=== PATIENT | male | born 1945 | race African-American/Black ===

== ENCOUNTER 2022-01-21 22:45 | Inpatient (IN) | payer MEDICARE, BC ==
[~2022-01-21] VITALS: Ht 172.7 cm; Wt 64.4 kg
[2022-01-21 23:00] VITALS: BP 131/63
[2022-01-22] MEDS ORDERED: BISACODYL 10MG SUPP PR PRN (00:45)
[2022-01-22] MEDS ORDERED: MAGNESIUM HYDROXIDE 400MG/5ML 30ML UDC PO PRN (00:45)
[2022-01-22] MEDS ORDERED: ONDANSETRON HCL 4MG TABLET PO PRN (00:45)
[2022-01-22] MEDS ORDERED: NON FORMULARY PATIENT HOME MED XX SCH ×6 (00:45→09:00)
[2022-01-22] MEDS ORDERED: BISACODYL 5MG TABLET PO PRN (00:45)
[2022-01-22] MEDS ORDERED: ONDANSETRON HCL 4MG/2ML INJ IV PRN (01:15)
[2022-01-22] MEDS ORDERED: HYDRALAZINE 20MG/ML VIAL IV PRN (01:15)
[2022-01-22] MEDS ORDERED: GLUCAGON,HUMAN RECOMBINANT 1MG/VIAL IM PRN (01:15)
[2022-01-22] MEDS ORDERED: HYDRALAZINE 10 MG in SODIUM CHLORIDE 0.9% 49.5 ML IV PRN (01:30)
[2022-01-22] MEDS: BLOOD SUGAR DIAGNOSTIC STRIP TEST SCH (05:56)
[2022-01-22] MEDS: INSULIN LISPRO 100 UNITS/ML SUBCUT SCH (05:56)
[2022-01-22 06:18] LABS: CHLORIDE 100 mEq/L (98-107)
[2022-01-22 06:32] LABS: BASOPHILS % 0.4 % (0.0-2.0); EOSINOPHILS % 0.7 % (0.0-5.0); HEMATOCRIT. 30.7 % (42.0-52.0); HEMOGLOBIN. 10.6 g/dL (14.0-18.0); LYMPHOCYTES % 14.7 % (20.0-50.0); MEAN CORPUSCULAR HEMOGLOBIN 33.6 pg (28.0-32.0); MEAN CORPUSCULAR VOLUME 97.2 fL (80.0-94.0); MEAN PLATELET VOLUME 8.9 fl (7.4-10.4); MONOCYTES % 9.8 % (2.0-8.0); NEUTROPHILS % 74.4 % (40.0-76.0); PLATELET 162 x1000/uL (130-400); RED BLOOD CELL COUNT 3.16 mill/uL (4.7-6.1); RED CELL DISTRIBUTION WIDTH 14.2 % (11.6-14.6)
[2022-01-22 08:00] VITALS: BP 132/65
[2022-01-22] MEDS: IPRATROPIUM/ALBUTEROL 0.5-3(2.5)MG/3ML NEB HHN SCH ×3 (08:16→20:15)
[2022-01-22] MEDS ORDERED: FLUTICASONE PROPIONATE 50MCG/SPRAY BOTTLE BOTHNSTRLS SCH (09:00)
[2022-01-22] MEDS: TRAMADOL 50MG TABLET PO SCH ×2 (09:00→21:00)
[2022-01-22] MEDS: ZINC OXIDE 16% PASTE 28GM TOP SCH ×2 (09:00→21:22)
[2022-01-22] MEDS: POLYETHYLENE GLYCOL 3350 (17GM) 1 DOSE PACK PO SCH ×2 (10:24→21:21)
[2022-01-22] MEDS: FAMOTIDINE 20MG TABLET PO SCH (10:25)
[2022-01-22] MEDS: ASCORBIC ACID 500 MG TABLET PO SCH (10:25)
[2022-01-22] MEDS: SENNOSIDES 8.6MG TABLET PO SCH ×2 (10:25→21:21)
[2022-01-22] MEDS: AMLODIPINE 5MG TABLET PO SCH (10:25)
[2022-01-22] MEDS: CITALOPRAM HYDROBROMIDE 10MG TABLET PO SCH (10:25)
[2022-01-22] MEDS: METHYLPREDNISOLONE SOD SUCC 40 MG/ML VIAL IV SCH (10:26)
[2022-01-22] MEDS: LACTULOSE 20G/30ML UDC PO SCH ×4 (10:26→21:19)
[2022-01-22] MEDS ORDERED: NA PHOS,M-B/NA PHOS,DI-BA ENEMA 118ML PR SCH (13:30)
[2022-01-22] MEDS: ENOXAPARIN 40MG/0.4ML SYR SUBCUT SCH (13:33)
[2022-01-22] MEDS: DOCUSATE SODIUM SUGAR FREE 100MG/10ML UDC PO SCH ×2 (13:34→21:19)
[2022-01-22] MEDS: LIPASE/PROTEASE/AMYLASE 4,200/14,200/24,600 UNITS CAP DR PO SCH (18:12)
[2022-01-22] MEDS ORDERED: NALOXONE HCL 0.4MG/ML VIAL IV PRN (19:15)
[2022-01-22 20:09] VITALS: BP 121/65
[2022-01-22] MEDS ORDERED: NON FORMULARY PATIENT HOME MED PO SCH (21:00)
[2022-01-22] MEDS ORDERED: TERAZOSIN HCL 1MG CAPSULE PO SCH (21:00)
[2022-01-22] MEDS: FLUTICASONE PROPIONATE 50MCG/SPRAY BOTTLE BOTHNSTRLS SCH (21:19)
[2022-01-22] MEDS: TRAZODONE HCL 50MG TABLET PO SCH (21:20)
[2022-01-22] MEDS: TERAZOSIN HCL 5MG CAPSULE PO SCH (21:21)
[2022-01-22] MEDS: ATORVASTATIN CALCIUM 20MG TABLET PO SCH (21:21)
[2022-01-22] MEDS: MELATONIN 3MG TABLET PO SCH (21:21)
[2022-01-23] MEDS: BUDESONIDE 0.5MG/2ML NEB HHN SCH ×3 (01:08→20:29)
[2022-01-23] MEDS: IPRATROPIUM/ALBUTEROL 0.5-3(2.5)MG/3ML NEB HHN SCH ×6 (01:08→20:29)
[2022-01-23] MEDS ORDERED: METO10TA3 PO (02:34)
[2022-01-23] MEDS ORDERED: ASPI-1406 PO (02:34)
[2022-01-23] MEDS ORDERED: FAMO20TA8 PO (02:34)
[2022-01-23] MEDS ORDERED: DEXL60CA3 PO (02:34)
[2022-01-23] MEDS ORDERED: URSO300C4 PO (02:34)
[2022-01-23] MEDS ORDERED: AMLO2.5T45 PO (02:34)
[2022-01-23] MEDS ORDERED: ROSU5TAB PO (02:34)
[2022-01-23] MEDS ORDERED: TERA2CAP4 PO (02:34)
[2022-01-23] MEDS ORDERED: MECL-217 PO (02:34)
[2022-01-23] MEDS ORDERED: TRAZ-251 PO (02:34)
[2022-01-23] MEDS ORDERED: TADA5TAB PO (02:34)
[2022-01-23] MEDS ORDERED: ESCI-7 PO (02:34)
[2022-01-23] MEDS ORDERED: PRUC2TAB PO (02:34)
[2022-01-23] MEDS: BLOOD SUGAR DIAGNOSTIC STRIP TEST SCH (05:53)
[2022-01-23] MEDS: INSULIN LISPRO 100 UNITS/ML SUBCUT SCH (05:53)
[2022-01-23 08:00] VITALS: BP 141/73
[2022-01-23] MEDS: TRAMADOL 50MG TABLET PO SCH ×2 (09:00→21:00)
[2022-01-23] MEDS ORDERED: NA PHOS,M-B/NA PHOS,DI-BA ENEMA 118ML PR PRN (09:00)
[2022-01-23] MEDS: DOCUSATE SODIUM SUGAR FREE 100MG/10ML UDC PO SCH ×2 (09:17→21:36)
[2022-01-23] MEDS: ASPIRIN 81MG TABLET PO SCH (09:18)
[2022-01-23] MEDS: METHYLPREDNISOLONE SOD SUCC 40 MG/ML VIAL IV SCH (09:18)
[2022-01-23] MEDS: FLUTICASONE PROPIONATE 50MCG/SPRAY BOTTLE BOTHNSTRLS SCH (09:18)
[2022-01-23] MEDS: ENOXAPARIN 40MG/0.4ML SYR SUBCUT SCH (09:19)
[2022-01-23] MEDS: CITALOPRAM HYDROBROMIDE 10MG TABLET PO SCH (09:19)
[2022-01-23] MEDS: SENNOSIDES 8.6MG TABLET PO SCH ×2 (09:19→21:37)
[2022-01-23] MEDS: LIPASE/PROTEASE/AMYLASE 4,200/14,200/24,600 UNITS CAP DR PO SCH ×3 (09:19→17:25)
[2022-01-23] MEDS: ASCORBIC ACID 500 MG TABLET PO SCH (09:20)
[2022-01-23] MEDS: POLYETHYLENE GLYCOL 3350 (17GM) 1 DOSE PACK PO SCH (09:20)
[2022-01-23] MEDS: FAMOTIDINE 20MG TABLET PO SCH (09:20)
[2022-01-23] MEDS: AMLODIPINE 5MG TABLET PO SCH (09:20)
[2022-01-23] MEDS: ZINC OXIDE 16% PASTE 28GM TOP SCH ×2 (09:21→21:38)
[2022-01-23] MEDS ORDERED: NA PHOS,M-B/NA PHOS,DI-BA ENEMA 118ML PR NR (10:30)
[2022-01-23] MEDS: LACTULOSE 20G/30ML UDC PO SCH ×3 (10:50→17:25)
[2022-01-23 20:00] VITALS: BP 126/65
[2022-01-23] MEDS: TRAZODONE HCL 50MG TABLET PO SCH (21:36)
[2022-01-23] MEDS: ATORVASTATIN CALCIUM 20MG TABLET PO SCH (21:37)
[2022-01-23] MEDS: TERAZOSIN HCL 5MG CAPSULE PO SCH (21:37)
[2022-01-23] MEDS: MELATONIN 3MG TABLET PO SCH (21:37)
[2022-01-24] MEDS: IPRATROPIUM/ALBUTEROL 0.5-3(2.5)MG/3ML NEB HHN SCH ×6 (01:23→20:46)
[2022-01-24] MEDS: BLOOD SUGAR DIAGNOSTIC STRIP TEST SCH (06:05)
[2022-01-24] MEDS: INSULIN LISPRO 100 UNITS/ML SUBCUT SCH (06:05)
[2022-01-24] MEDS: BUDESONIDE 0.5MG/2ML NEB HHN SCH ×2 (07:30→20:45)
[2022-01-24 08:00] VITALS: BP 133/64
[2022-01-24] MEDS: ENOXAPARIN 40MG/0.4ML SYR SUBCUT SCH (08:37)
[2022-01-24] MEDS: CITALOPRAM HYDROBROMIDE 10MG TABLET PO SCH (08:38)
[2022-01-24] MEDS: ASPIRIN 81MG TABLET PO SCH (08:38)
[2022-01-24] MEDS: FLUTICASONE PROPIONATE 50MCG/SPRAY BOTTLE BOTHNSTRLS SCH (08:39)
[2022-01-24] MEDS: FAMOTIDINE 20MG TABLET PO SCH (08:39)
[2022-01-24] MEDS: METHYLPREDNISOLONE SOD SUCC 40 MG/ML VIAL IV SCH (08:39)
[2022-01-24] MEDS: LIPASE/PROTEASE/AMYLASE 4,200/14,200/24,600 UNITS CAP DR PO SCH ×3 (08:39→16:33)
[2022-01-24] MEDS: SENNOSIDES 8.6MG TABLET PO SCH ×2 (08:39→20:25)
[2022-01-24] MEDS: DOCUSATE SODIUM SUGAR FREE 100MG/10ML UDC PO SCH ×2 (08:39→20:25)
[2022-01-24] MEDS: ASCORBIC ACID 500 MG TABLET PO SCH (08:39)
[2022-01-24] MEDS: ZINC OXIDE 16% PASTE 28GM TOP SCH ×2 (08:39→20:25)
[2022-01-24] MEDS: TRAMADOL 50MG TABLET PO SCH ×3 (08:40→21:25)
[2022-01-24] MEDS: POLYETHYLENE GLYCOL 3350 (17GM) 1 DOSE PACK PO SCH (08:40)
[2022-01-24 20:00] VITALS: BP 109/60
[2022-01-24] MEDS: ATORVASTATIN CALCIUM 20MG TABLET PO SCH (20:25)
[2022-01-24] MEDS: TRAZODONE HCL 50MG TABLET PO SCH (20:25)
[2022-01-24] MEDS: TERAZOSIN HCL 5MG CAPSULE PO SCH (20:25)
[2022-01-24] MEDS: MELATONIN 3MG TABLET PO SCH (20:26)
[2022-01-25] MEDS: IPRATROPIUM/ALBUTEROL 0.5-3(2.5)MG/3ML NEB HHN SCH ×6 (00:06→23:55)
[2022-01-25 08:00] VITALS: BP 117/65
[2022-01-25] MEDS: INSULIN LISPRO 100 UNITS/ML SUBCUT SCH (09:00)
[2022-01-25] MEDS: ZINC OXIDE 16% PASTE 28GM TOP SCH ×2 (09:00→21:00)
[2022-01-25] MEDS: BISACODYL 10MG SUPP PR SCH (09:00)
[2022-01-25] MEDS: FLUTICASONE PROPIONATE 50MCG/SPRAY BOTTLE BOTHNSTRLS SCH (09:19)
[2022-01-25] MEDS: METHYLPREDNISOLONE SOD SUCC 40 MG/ML VIAL IV SCH (09:19)
[2022-01-25] MEDS: ENOXAPARIN 40MG/0.4ML SYR SUBCUT SCH (09:19)
[2022-01-25] MEDS: FAMOTIDINE 20MG TABLET PO SCH (09:20)
[2022-01-25] MEDS: ASCORBIC ACID 500 MG TABLET PO SCH (09:20)
[2022-01-25] MEDS: CITALOPRAM HYDROBROMIDE 10MG TABLET PO SCH (09:20)
[2022-01-25] MEDS: DOCUSATE SODIUM SUGAR FREE 100MG/10ML UDC PO SCH ×2 (09:20→21:18)
[2022-01-25] MEDS: SENNOSIDES 8.6MG TABLET PO SCH ×2 (09:20→21:18)
[2022-01-25] MEDS: ASPIRIN 81MG TABLET PO SCH (09:20)
[2022-01-25] MEDS: POLYETHYLENE GLYCOL 3350 (17GM) 1 DOSE PACK PO SCH (09:21)
[2022-01-25] MEDS: BLOOD SUGAR DIAGNOSTIC STRIP TEST SCH (09:40)
[2022-01-25] MEDS: LIPASE/PROTEASE/AMYLASE 4,200/14,200/24,600 UNITS CAP DR PO SCH ×3 (10:11→16:41)
[2022-01-25 10:35] LABS: BASOPHILS % 0.3 % (0.0-2.0); EOSINOPHILS % 0.4 % (0.0-5.0); HEMATOCRIT. 29.2 % (42.0-52.0); HEMOGLOBIN. 9.8 g/dL (14.0-18.0); LYMPHOCYTES % 14.3 % (20.0-50.0); MEAN CORPUSCULAR HEMOGLOBIN 32.9 pg (28.0-32.0); MEAN PLATELET VOLUME 8.9 fl (7.4-10.4); MONOCYTES % 9.2 % (2.0-8.0); NEUTROPHILS % 75.8 % (40.0-76.0); PLATELET 174 x1000/uL (130-400); RED BLOOD CELL COUNT 2.98 mill/uL (4.7-6.1); RED CELL DISTRIBUTION WIDTH 14.4 % (11.6-14.6)
[2022-01-25 10:45] LABS: CHLORIDE 101 mEq/L (98-107)
[2022-01-25] MEDS: BUDESONIDE 0.5MG/2ML NEB HHN SCH ×2 (12:49→21:26)
[2022-01-25 19:58] VITALS: BP 126/64
[2022-01-25] MEDS: MELATONIN 3MG TABLET PO SCH (21:18)
[2022-01-25] MEDS: ATORVASTATIN CALCIUM 20MG TABLET PO SCH (21:18)
[2022-01-25] MEDS: TRAZODONE HCL 50MG TABLET PO SCH (21:19)
[2022-01-25] MEDS: TERAZOSIN HCL 5MG CAPSULE PO SCH (21:19)
[2022-01-26] MEDS: IPRATROPIUM/ALBUTEROL 0.5-3(2.5)MG/3ML NEB HHN SCH ×5 (04:38→19:36)
[2022-01-26 06:30] LABS: CHLORIDE 102 mEq/L (98-107)
[2022-01-26 06:47] LABS: BASOPHILS % 0.1 % (0.0-2.0); EOSINOPHILS % 0.2 % (0.0-5.0); HEMATOCRIT. 28.4 % (42.0-52.0); HEMOGLOBIN. 9.6 g/dL (14.0-18.0); MEAN CORPUSCULAR HEMOGLOBIN 32.9 pg (28.0-32.0); MEAN CORPUSCULAR VOLUME 96.9 fL (80.0-94.0); MEAN PLATELET VOLUME 8.5 fl (7.4-10.4); MONOCYTES % 7.8 % (2.0-8.0); NEUTROPHILS % 78.9 % (40.0-76.0); PLATELET 175 x1000/uL (130-400); RED BLOOD CELL COUNT 2.94 mill/uL (4.7-6.1); RED CELL DISTRIBUTION WIDTH 14.4 % (11.6-14.6)
[2022-01-26 07:01] LABS: FOLIC ACID (FOLATE) SERUM 17.7 ng/mL (>5.38)
[2022-01-26 08:00] VITALS: BP 99/49
[2022-01-26] MEDS: TRAMADOL 50MG TABLET PO SCH (09:00)
[2022-01-26] MEDS: BLOOD SUGAR DIAGNOSTIC STRIP TEST SCH (09:00)
[2022-01-26] MEDS: INSULIN LISPRO 100 UNITS/ML SUBCUT SCH (09:00)
[2022-01-26] MEDS: DOCUSATE SODIUM SUGAR FREE 100MG/10ML UDC PO SCH ×2 (11:30→21:35)
[2022-01-26] MEDS: ASPIRIN 81MG TABLET PO SCH (11:30)
[2022-01-26] MEDS: SENNOSIDES 8.6MG TABLET PO SCH ×2 (11:31→21:36)
[2022-01-26] MEDS: FLUTICASONE PROPIONATE 50MCG/SPRAY BOTTLE BOTHNSTRLS SCH (11:31)
[2022-01-26] MEDS: BISACODYL 10MG SUPP PR SCH (11:31)
[2022-01-26] MEDS: FAMOTIDINE 20MG TABLET PO SCH (11:31)
[2022-01-26] MEDS: ASCORBIC ACID 500 MG TABLET PO SCH (11:31)
[2022-01-26] MEDS: LIPASE/PROTEASE/AMYLASE 4,200/14,200/24,600 UNITS CAP DR PO SCH ×3 (11:31→17:30)
[2022-01-26] MEDS: CITALOPRAM HYDROBROMIDE 10MG TABLET PO SCH (11:31)
[2022-01-26] MEDS: POLYETHYLENE GLYCOL 3350 (17GM) 1 DOSE PACK PO SCH (11:32)
[2022-01-26] MEDS: METHYLPREDNISOLONE SOD SUCC 40 MG/ML VIAL IV SCH (11:32)
[2022-01-26] MEDS: ENOXAPARIN 40MG/0.4ML SYR SUBCUT SCH (11:32)
[2022-01-26] MEDS: ZINC OXIDE 16% PASTE 28GM TOP SCH (11:33)
[2022-01-26] MEDS ORDERED: TRAMADOL 50MG TABLET PO PRN (14:00)
[2022-01-26] MEDS ORDERED: SORBITOL 70% SOLN 30ML PO NR (15:00)
[2022-01-26] MEDS ORDERED: NA PHOS,M-B/NA PHOS,DI-BA ENEMA 118ML PR NR (15:00)
[2022-01-26] MEDS: BUDESONIDE 0.5MG/2ML NEB HHN SCH (19:36)
[2022-01-26 20:06] VITALS: BP 124/69
[2022-01-26] MEDS: TRAZODONE HCL 50MG TABLET PO SCH (21:36)
[2022-01-26] MEDS: TERAZOSIN HCL 5MG CAPSULE PO SCH (21:36)
[2022-01-26] MEDS: MELATONIN 3MG TABLET PO SCH (21:36)
[2022-01-26] MEDS: ATORVASTATIN CALCIUM 20MG TABLET PO SCH (21:36)
[2022-01-27] MEDS: IPRATROPIUM/ALBUTEROL 0.5-3(2.5)MG/3ML NEB HHN SCH ×6 (02:49→21:37)
[2022-01-27 08:00] VITALS: BP 127/63
[2022-01-27] MEDS: INSULIN LISPRO 100 UNITS/ML SUBCUT SCH (09:00)
[2022-01-27] MEDS: POLYETHYLENE GLYCOL 3350 (17GM) 1 DOSE PACK PO SCH (09:00)
[2022-01-27] MEDS: BLOOD SUGAR DIAGNOSTIC STRIP TEST SCH (09:00)
[2022-01-27] MEDS ORDERED: NA PHOS,M-B/NA PHOS,DI-BA ENEMA 118ML PR PRN (09:00)
[2022-01-27] MEDS: DOCUSATE SODIUM SUGAR FREE 100MG/10ML UDC PO SCH ×2 (09:16→21:23)
[2022-01-27] MEDS: ASPIRIN 81MG TABLET PO SCH (09:17)
[2022-01-27] MEDS: FAMOTIDINE 20MG TABLET PO SCH (09:17)
[2022-01-27] MEDS: ASCORBIC ACID 500 MG TABLET PO SCH (09:17)
[2022-01-27] MEDS: SENNOSIDES 8.6MG TABLET PO SCH ×2 (09:17→21:24)
[2022-01-27] MEDS: ENOXAPARIN 40MG/0.4ML SYR SUBCUT SCH (09:17)
[2022-01-27] MEDS: BISACODYL 10MG SUPP PR SCH (09:18)
[2022-01-27] MEDS: CITALOPRAM HYDROBROMIDE 10MG TABLET PO SCH (09:18)
[2022-01-27] MEDS: LIPASE/PROTEASE/AMYLASE 4,200/14,200/24,600 UNITS CAP DR PO SCH ×3 (09:18→17:10)
[2022-01-27] MEDS: METHYLPREDNISOLONE SOD SUCC 40 MG/ML VIAL IV SCH (09:50)
[2022-01-27] MEDS: BUDESONIDE 0.5MG/2ML NEB HHN SCH ×3 (11:06→21:37)
[2022-01-27 20:00] VITALS: BP 106/61
[2022-01-27] MEDS: ZINC OXIDE 16% PASTE 28GM TOP SCH ×3 (21:00→21:24)
[2022-01-27] MEDS: ATORVASTATIN CALCIUM 20MG TABLET PO SCH (21:24)
[2022-01-27] MEDS: MELATONIN 3MG TABLET PO SCH (21:24)
[2022-01-27] MEDS: TRAZODONE HCL 50MG TABLET PO SCH (21:24)
[2022-01-27] MEDS: TERAZOSIN HCL 5MG CAPSULE PO SCH (21:28)
[2022-01-28] MEDS: IPRATROPIUM/ALBUTEROL 0.5-3(2.5)MG/3ML NEB HHN SCH ×5 (00:10→20:09)
[2022-01-28 08:00] VITALS: BP 142/68
[2022-01-28] MEDS: BUDESONIDE 0.5MG/2ML NEB HHN SCH ×2 (08:06→20:08)
[2022-01-28] MEDS: DOCUSATE SODIUM SUGAR FREE 100MG/10ML UDC PO SCH ×2 (08:25→21:34)
[2022-01-28] MEDS: SENNOSIDES 8.6MG TABLET PO SCH ×2 (08:25→21:22)
[2022-01-28] MEDS: ASCORBIC ACID 500 MG TABLET PO SCH (08:25)
[2022-01-28] MEDS: BISACODYL 10MG SUPP PR SCH (08:25)
[2022-01-28] MEDS: ASPIRIN 81MG TABLET PO SCH (08:25)
[2022-01-28] MEDS: CITALOPRAM HYDROBROMIDE 10MG TABLET PO SCH (08:26)
[2022-01-28] MEDS: POLYETHYLENE GLYCOL 3350 (17GM) 1 DOSE PACK PO SCH (08:26)
[2022-01-28] MEDS: FAMOTIDINE 20MG TABLET PO SCH (08:26)
[2022-01-28] MEDS: LIPASE/PROTEASE/AMYLASE 4,200/14,200/24,600 UNITS CAP DR PO SCH ×3 (08:26→16:53)
[2022-01-28] MEDS: ENOXAPARIN 40MG/0.4ML SYR SUBCUT SCH (08:28)
[2022-01-28] MEDS: INSULIN LISPRO 100 UNITS/ML SUBCUT SCH (09:00)
[2022-01-28] MEDS: ZINC OXIDE 16% PASTE 28GM TOP SCH ×2 (09:00→21:39)
[2022-01-28] MEDS: BLOOD SUGAR DIAGNOSTIC STRIP TEST SCH (09:00)
[2022-01-28] MEDS: METHYLPREDNISOLONE SOD SUCC 40 MG/ML VIAL IV SCH (10:55)
[2022-01-28 20:00] VITALS: BP 138/68
[2022-01-28] MEDS: ATORVASTATIN CALCIUM 20MG TABLET PO SCH (21:22)
[2022-01-28] MEDS: TRAZODONE HCL 50MG TABLET PO SCH (21:23)
[2022-01-28] MEDS: MELATONIN 3MG TABLET PO SCH (21:23)
[2022-01-28] MEDS: TERAZOSIN HCL 5MG CAPSULE PO SCH (21:40)
[2022-01-29] MEDS: IPRATROPIUM/ALBUTEROL 0.5-3(2.5)MG/3ML NEB HHN SCH ×6 (00:11→21:40)
[2022-01-29] MEDS: BUDESONIDE 0.5MG/2ML NEB HHN SCH (07:40)
[2022-01-29 08:00] VITALS: BP 114/72
[2022-01-29] MEDS: BLOOD SUGAR DIAGNOSTIC STRIP TEST SCH (08:46)
[2022-01-29] MEDS: INSULIN LISPRO 100 UNITS/ML SUBCUT SCH (08:46)
[2022-01-29] MEDS: POLYETHYLENE GLYCOL 3350 (17GM) 1 DOSE PACK PO SCH (09:00)
[2022-01-29] MEDS: ASPIRIN 81MG TABLET PO SCH (09:18)
[2022-01-29] MEDS: LIPASE/PROTEASE/AMYLASE 4,200/14,200/24,600 UNITS CAP DR PO SCH ×3 (09:18→17:47)
[2022-01-29] MEDS: CITALOPRAM HYDROBROMIDE 10MG TABLET PO SCH (09:18)
[2022-01-29] MEDS: ENOXAPARIN 40MG/0.4ML SYR SUBCUT SCH (09:19)
[2022-01-29] MEDS: ASCORBIC ACID 500 MG TABLET PO SCH (09:19)
[2022-01-29] MEDS: FAMOTIDINE 20MG TABLET PO SCH (09:19)
[2022-01-29] MEDS: METHYLPREDNISOLONE SOD SUCC 40 MG/ML VIAL IV SCH (09:19)
[2022-01-29] MEDS: BISACODYL 10MG SUPP PR SCH (09:19)
[2022-01-29] MEDS: SENNOSIDES 8.6MG TABLET PO SCH ×2 (09:19→21:24)
[2022-01-29] MEDS: ZINC OXIDE 16% PASTE 28GM TOP SCH ×2 (09:20→21:24)
[2022-01-29] MEDS: DOCUSATE SODIUM SUGAR FREE 100MG/10ML UDC PO SCH ×2 (09:23→21:27)
[2022-01-29 20:00] VITALS: BP 112/69
[2022-01-29] MEDS: ATORVASTATIN CALCIUM 20MG TABLET PO SCH (21:24)
[2022-01-29] MEDS: MELATONIN 3MG TABLET PO SCH (21:25)
[2022-01-29] MEDS: TERAZOSIN HCL 5MG CAPSULE PO SCH (21:26)
[2022-01-29] MEDS: TRAZODONE HCL 50MG TABLET PO SCH (21:26)
[2022-01-30] MEDS: IPRATROPIUM/ALBUTEROL 0.5-3(2.5)MG/3ML NEB HHN SCH ×4 (01:34→17:30)
[2022-01-30 08:00] VITALS: BP 114/54
[2022-01-30] MEDS: BISACODYL 10MG SUPP PR SCH (08:41)
[2022-01-30] MEDS: ASPIRIN 81MG TABLET PO SCH (08:43)
[2022-01-30] MEDS: ASCORBIC ACID 500 MG TABLET PO SCH (08:44)
[2022-01-30] MEDS: METHYLPREDNISOLONE SOD SUCC 40 MG/ML VIAL IV SCH (08:44)
[2022-01-30] MEDS: FAMOTIDINE 20MG TABLET PO SCH (08:44)
[2022-01-30] MEDS: POLYETHYLENE GLYCOL 3350 (17GM) 1 DOSE PACK PO SCH (08:44)
[2022-01-30] MEDS: CITALOPRAM HYDROBROMIDE 10MG TABLET PO SCH (08:44)
[2022-01-30] MEDS: SENNOSIDES 8.6MG TABLET PO SCH (08:44)
[2022-01-30] MEDS: DOCUSATE SODIUM SUGAR FREE 100MG/10ML UDC PO SCH (08:44)
[2022-01-30] MEDS: LIPASE/PROTEASE/AMYLASE 4,200/14,200/24,600 UNITS CAP DR PO SCH ×3 (08:44→16:37)
[2022-01-30] MEDS ORDERED: ENOXAPARIN 40MG/0.4ML SYR SUBCUT SCH (09:00)
[2022-01-30] MEDS: INSULIN LISPRO 100 UNITS/ML SUBCUT SCH (09:00)
[2022-01-30] MEDS: BLOOD SUGAR DIAGNOSTIC STRIP TEST SCH (09:20)
[2022-01-30] MEDS: ZINC OXIDE 16% PASTE 28GM TOP SCH (09:20)
[2022-01-30 11:00] VITALS: BP 145/68
== END 2022-01-30 19:40 | DRG 70 ==
PROVIDERS: ADMIT Physical Medicine & Rehabilitation Spinal Cord Injury Medicine; ATTEND Internal Medicine
PROC: 5A09357 Assistance with Respiratory Ventilation, Less than 24 Consecutive Hours, Continuous Positive Airway Pressure (ICD-10-PCS; principal; 2022-01-22)
PROC: 5A09357 Assistance with Respiratory Ventilation, Less than 24 Consecutive Hours, Continuous Positive Airway Pressure (ICD-10-PCS; 2022-01-23)
PROC: 5A09357 Assistance with Respiratory Ventilation, Less than 24 Consecutive Hours, Continuous Positive Airway Pressure (ICD-10-PCS; 2022-01-24)
PROC: 5A09357 Assistance with Respiratory Ventilation, Less than 24 Consecutive Hours, Continuous Positive Airway Pressure (ICD-10-PCS; 2022-01-25)
PROC: 5A09357 Assistance with Respiratory Ventilation, Less than 24 Consecutive Hours, Continuous Positive Airway Pressure (ICD-10-PCS; 2022-01-26)
PROC: 5A09357 Assistance with Respiratory Ventilation, Less than 24 Consecutive Hours, Continuous Positive Airway Pressure (ICD-10-PCS; 2022-01-27)
PROC: 5A09357 Assistance with Respiratory Ventilation, Less than 24 Consecutive Hours, Continuous Positive Airway Pressure (ICD-10-PCS; 2022-01-28)
PROC: 5A09357 Assistance with Respiratory Ventilation, Less than 24 Consecutive Hours, Continuous Positive Airway Pressure (ICD-10-PCS; 2022-01-29)
PROC: 5A09357 Assistance with Respiratory Ventilation, Less than 24 Consecutive Hours, Continuous Positive Airway Pressure (ICD-10-PCS; 2022-01-30)
DX: G93.41 Metabolic encephalopathy (principal); G82.50 Quadriplegia, unspecified; J18.9 Pneumonia, unspecified organism; J96.21 Acute and chronic respiratory failure with hypoxia; J44.1 Chronic obstructive pulmonary disease with (acute) exacerbation; J44.0 Chronic obstructive pulmonary disease with (acute) lower respiratory infection; F33.1 Major depressive disorder, recurrent, moderate; E78.5 Hyperlipidemia, unspecified; G14 Postpolio syndrome; G47.00 Insomnia, unspecified; I10 Essential (primary) hypertension; I25.10 Atherosclerotic heart disease of native coronary artery without angina pectoris; Z20.822 Contact with and (suspected) exposure to COVID-19; K56.41 Fecal impaction; M41.9 Scoliosis, unspecified; R13.10 Dysphagia, unspecified; D64.9 Anemia, unspecified; N40.0 Benign prostatic hyperplasia without lower urinary tract symptoms; Z86.74 Personal history of sudden cardiac arrest; Z98.1 Arthrodesis status; Z99.81 Dependence on supplemental oxygen; Z82.49 Family history of ischemic heart disease and other diseases of the circulatory system; I25.2 Old myocardial infarction; R26.9 Unspecified abnormalities of gait and mobility; R53.81 Other malaise
CPT/HCPCS: 36415; 71045; 73523; 73610; 73630; 80048; 80053; 82306; 82607; 82746; 82962; 83735; 84134; 84443; 85025; 87426; 92523; 93005; 93306; 93970; 94640; 94660; 94667; 97110; 97116; 97150; 97162; 97166; 97530; 97535; A6261; J1650; J2920; J7626